=== PATIENT | female | born 1945 | race Caucasian/White ===

== ENCOUNTER → 2016-09-04 | Outpatient (REF) | payer MEDICARE ==
[2016-09-04 13:32] LABS: CALCIUM OXALATE CRYSTALS LARGE
== END ==
LOC: M SMT 12:46
PROVIDERS: ATTEND Nurse Practitioner Family
DX: R35.0 Frequency of micturition (principal)
CPT/HCPCS: 81001; 87086; G0463

== ENCOUNTER → 2016-09-10 | Outpatient (CLI) | payer MEDICARE, BC ==
--- NOTE | 2016-09-10 11:29 | REP ---
CT of the abdomen and pelvis without IV or bowel contrast: A comparison is 01/24/2007 . The patient has a history of left nephrectomy. The visualized lung caba are unremarkable. The unenhanced hepatic parenchyma is unremarkable. There is a gallbladder calculus in the gallbladder fundus as an interval change. The gallbladder is otherwise unremarkable. The pancreas and spleen are normal size and unchanged. There are surgical clips in the left renal fossa and the left kidney is absent. There is no evidence of tumor recurrence. I do not identify the left adrenal on the current study and I can identify the left adrenal on the prior study. The right adrenal is unremarkable. There are right renal parapelvic cysts as previously. There is no right hydronephrosis or hydroureter. There are no right renal or ureteral calculi. There are no bladder calculi. The abdominal aorta is unremarkable except for occasional calcified atheroma. There is no bowel distension. Mesentery is unremarkable. Pelvis: The appendix is unremarkable. There is no ascites or adenopathy. The uterus and adnexa are unremarkable. The pelvic bowel loops are unremarkable. Half there are no lytic, blastic or destructive skeletal changes except for a small focal density posteriorly in the left iliac wing at the sacroiliac articulations, possibly bone island or possibly skeletal metastasis, not present previously. Consider MRI or. Impression: Left nephrectomy and possibly a left adrenalectomy. No evidence of tumor recurrence. No retroperitoneal, pelvic or abdominal adenopathy. No ascites. There is no hydronephrosis of the right kidney or ureter. No right renal or ureteral calculi. There are right renal parapelvic cysts as previously. There is a single gallbladder calculus. There is a small sclerotic density posteriorly in the left iliac wing, not present previously, bone island versus blastic metastasis. Consider radionuclide bone scan or MRI for further evaluation. radionuclide bone scan. Signed by Julio Cesar Roth MD 09/10/2016 09:05 A
== END ==
LOC: M RAD 07:29
PROVIDERS: ATTEND Nurse Practitioner Family
DX: N13.30 Unspecified hydronephrosis (principal)

== ENCOUNTER → 2016-11-13 | Outpatient (CLI) | payer MEDICARE, BC ==
--- NOTE | 2016-11-13 14:01 | REP ---
Whole body radionuclide bone scan: Whole-body scanning is performed. Additionally lateral views of the calvarium and knees are performed and oblique views of the ribs and pelvis are performed. Comparison is a CT abdomen pelvis dated 08/14/2016. There is early small sclerotic lesion posteriorly in the left iliac wing. On the whole-body scan there is no unusual uptake in the calvarium. There is a degenerative pattern of uptake in the shoulders and sternoclavicular joints. There is no unusual uptake in the cervical spine, thoracic spine or lumbar spine. No unusual rib uptake. Uptake in the pelvis is bilaterally symmetric. There is no evidence of focal increased uptake posteriorly in the left iliac wing. Therefore, the finding on the comparison CT is likely a benign bone island. There is focal uptake at the thumb bases bilaterally. In this location, this is most compatible with osteoarthritis. There is no unusual uptake in the hips or lower extremities. I note that there is no radio tracer excretion by the left kidney. Review of the comparison CT indicates the the patient has a left nephrectomy. Impression: There is no focal unusual or abnormal uptake posteriorly in the left iliac wing. Therefore the finding on the comparison CT is likely a benign bone island. There is a degenerative pattern of uptake in the shoulders bilaterally and in the bases of the thumbs bilaterally. There is a left nephrectomy. Otherwise, negative radionuclide bone scan. The study is performed with 20.2 mCi of technetium 99m labeled MDP Signed by Julio Cesar Roth MD 11/13/2016 01:52 P
== END ==
LOC: M RAD 10:01
PROVIDERS: ATTEND Physician Assistant
DX: M89.9 Disorder of bone, unspecified (principal)
CPT/HCPCS: 78306; A9503

== ENCOUNTER → 2017-01-01 | Outpatient (REF) | payer MEDICARE, BC ==
[2017-01-02 12:32] LABS: MEAN CORPUSCULAR HEMOGLOBIN 29.1 pg (27.0-33.0); MEAN CORPUSCULAR HGB CONC 32.9 g/dl (32.0-36.5); MEAN CORPUSCULAR VOLUME 88.6 fl (80.0-96.0); RED CELL DISTRIBUTION WIDTH 14.7 % (11.5-14.5); WHITE BLOOD COUNT 5.4 K/mm3 (4.0-10.0)
[2017-01-02 12:42] LABS: ALBUMIN 3.5 GM/DL (3.2-5.2); ALBUMIN/GLOBULIN RATIO 1.17 (1.00-1.93); ALKALINE PHOSPHATASE 91 U/L (45-117); ALT/SGPT 24 U/L (12-78); ANION GAP 5 MEQ/L (8-16); AST/SGOT 18 U/L (15-37); BILIRUBIN,TOTAL 0.4 MG/DL (0.2-1.0); BLOOD UREA NITROGEN 15 MG/DL (7-18); CALCIUM LEVEL 9.2 MG/DL (8.8-10.2); CARBON DIOXIDE LEVEL 29 MEQ/L (21-32); CHLORIDE LEVEL 108 MEQ/L (98-107); CREATININE FOR GFR 0.89 MG/DL (0.55-1.02); GLOMERULAR FILTRATION RATE > 60.0 (>39); GLUCOSE, FASTING 98 MG/DL (83-110); POTASSIUM SERUM 4.5 MEQ/L (3.5-5.1); SODIUM LEVEL 142 MEQ/L (136-145); TOTAL PROTEIN 6.5 GM/DL (6.4-8.2)
== END ==
LOC: M SFHCADAM 08:03
PROVIDERS: ATTEND Physician Assistant
DX: K74.3 Primary biliary cirrhosis (principal); Z13.820 Encounter for screening for osteoporosis; E55.9 Vitamin D deficiency, unspecified; M81.0 Age-related osteoporosis without current pathological fracture

== ENCOUNTER → 2017-06-26 | Outpatient (REF) | payer MEDICARE, BC ==
[2017-06-26 14:21] LABS: ALBUMIN 3.7 GM/DL (3.2-5.2); ALBUMIN/GLOBULIN RATIO 1.28 (1.00-1.93); ALKALINE PHOSPHATASE 96 U/L (45-117); ALT/SGPT 24 U/L (12-78); ANION GAP 6 MEQ/L (8-16); AST/SGOT 15 U/L (7-37); BILIRUBIN,TOTAL 0.3 MG/DL (0.2-1.0); BLOOD UREA NITROGEN 16 MG/DL (7-18); CALCIUM LEVEL 9.5 MG/DL (8.8-10.2); CARBON DIOXIDE LEVEL 26 MEQ/L (21-32); CHLORIDE LEVEL 108 MEQ/L (98-107); CHOLESTEROL LEVEL 125 MG/DL (<200); GLOMERULAR FILTRATION RATE > 60.0 (>39); GLUCOSE, FASTING 110 MG/DL (83-110); POTASSIUM SERUM 4.4 MEQ/L (3.5-5.1); SODIUM LEVEL 140 MEQ/L (136-145); TOTAL PROTEIN 6.6 GM/DL (6.4-8.2); TRIGLYCERIDES LEVEL 105 MG/DL (<150)
== END ==
LOC: M SFHCADAM 08:11
PROVIDERS: ATTEND Physician Assistant
DX: I25.10 Atherosclerotic heart disease of native coronary artery without angina pectoris (principal)

== ENCOUNTER → 2017-12-24 | Outpatient (CLI) | payer MEDICARE, BC | LOC: M WHC 08:19 | DX: K74.3 Primary biliary cirrhosis (principal) | CPT/HCPCS: 76705 ==

== ENCOUNTER → 2017-12-31 | Outpatient (REF) | payer MEDICARE, BC ==
[2017-12-31 12:57] LABS: HEMATOCRIT 41.9 % (36.0-47.0); HEMOGLOBIN 13.4 g/dl (12.0-15.5); MEAN CORPUSCULAR HEMOGLOBIN 28.4 pg (27.0-33.0); MEAN CORPUSCULAR VOLUME 88.8 fl (80.0-96.0); PLATELET COUNT, AUTOMATED 226 10^3/uL (150-450); RED BLOOD COUNT 4.72 10^6/uL (4.00-5.40); RED CELL DISTRIBUTION WIDTH 15.2 % (11.5-14.5); WHITE BLOOD COUNT 6.9 10^3/uL (4.0-10.0)
[2017-12-31 13:20] LABS: ALBUMIN 3.6 GM/DL (3.2-5.2); ALBUMIN/GLOBULIN RATIO 1.13 (1.00-1.93); ALKALINE PHOSPHATASE 100 U/L (45-117); ALPHA FETOPROTEIN TUMOR QUANT 1.5 NG/ML (<8.1); ALT/SGPT 24 U/L (12-78); ANION GAP 7 MEQ/L (8-16); AST/SGOT 20 U/L (7-37); BILIRUBIN,TOTAL 0.3 MG/DL (0.2-1.0); BLOOD UREA NITROGEN 20 MG/DL (7-18); CALCIUM LEVEL 9.2 MG/DL (8.8-10.2); CARBON DIOXIDE LEVEL 25 MEQ/L (21-32); CHLORIDE LEVEL 112 MEQ/L (98-107); CREATININE FOR GFR 0.89 MG/DL (0.55-1.30); GLOMERULAR FILTRATION RATE > 60.0 (>39); GLUCOSE, FASTING 97 MG/DL (70-100); POTASSIUM SERUM 4.5 MEQ/L (3.5-5.1); SODIUM LEVEL 144 MEQ/L (136-145); TOTAL PROTEIN 6.8 GM/DL (6.4-8.2)
== END ==
LOC: M SFHCADAM 08:05
DX: K74.3 Primary biliary cirrhosis (principal); I25.10 Atherosclerotic heart disease of native coronary artery without angina pectoris
CPT/HCPCS: 80053

== ENCOUNTER → 2018-01-23 | Outpatient (REF) | payer MEDICARE, BC ==
[2018-01-23 20:21] LABS: VITAMIN B12 LEVEL 517 PG/ML
[2018-01-23 20:39] LABS: FREE T4 0.97 NG/DL (0.76-1.46)
[2018-01-23 21:02] LABS: FOLATE 17.1 NG/ML
== END ==
LOC: M SFHCADAM 14:34
DX: Z12.11 Encounter for screening for malignant neoplasm of colon (principal); F32.2 Major depressive disorder, single episode, severe without psychotic features; G62.9 Polyneuropathy, unspecified
CPT/HCPCS: 82746

== ENCOUNTER → 2018-10-21 | Outpatient (REF) | payer MEDICARE ==
[2018-10-21 19:51] LABS: HEMATOCRIT 44.7 % (36.0-47.0); HEMOGLOBIN 13.8 g/dl (12.0-15.5); MEAN CORPUSCULAR HEMOGLOBIN 27.8 pg (27.0-33.0); MEAN CORPUSCULAR HGB CONC 30.9 g/dl (32.0-36.5); MEAN CORPUSCULAR VOLUME 90.1 fl (80.0-96.0); PLATELET COUNT, AUTOMATED 254 10^3/uL (150-450); RED BLOOD COUNT 4.96 10^6/uL (4.00-5.40); WHITE BLOOD COUNT 7.4 10^3/uL (4.0-10.0)
[2018-10-21 19:59] LABS: ALBUMIN 3.7 GM/DL (3.2-5.2); ALT/SGPT 22 U/L (12-78); BILIRUBIN,TOTAL 0.3 MG/DL (0.2-1.0); BLOOD UREA NITROGEN 19 MG/DL (7-18); CALCIUM LEVEL 9.7 MG/DL (8.8-10.2); CARBON DIOXIDE LEVEL 29 MEQ/L (21-32); CHLORIDE LEVEL 108 MEQ/L (98-107); GLOMERULAR FILTRATION RATE > 60.0 (>39); GLUCOSE, FASTING 83 MG/DL (70-100); POTASSIUM SERUM 5.3 MEQ/L (3.5-5.1); SODIUM LEVEL 142 MEQ/L (136-145)
== END ==
LOC: M SFHCADAM 12:14
PROVIDERS: ATTEND Physician Assistant
DX: K74.3 Primary biliary cirrhosis (principal)
CPT/HCPCS: 80053; 85027; G0463

== ENCOUNTER → 2019-05-06 | Outpatient (REF) | payer MEDICARE ==
[2019-05-06 19:34] LABS: HEMATOCRIT 46.3 % (36.0-47.0); HEMOGLOBIN 14.8 g/dl (12.0-15.5); MEAN CORPUSCULAR HEMOGLOBIN 27.7 pg (27.0-33.0); MEAN CORPUSCULAR VOLUME 86.5 fl (80.0-96.0); PLATELET COUNT, AUTOMATED 255 10^3/uL (150-450); RED BLOOD COUNT 5.35 10^6/uL (4.00-5.40); WHITE BLOOD COUNT 9.4 10^3/uL (4.0-10.0)
[2019-05-06 19:54] LABS: ALBUMIN 4.1 GM/DL (3.2-5.2); ALT/SGPT 25 U/L (12-78); BILIRUBIN,TOTAL 0.4 MG/DL (0.2-1.0); BLOOD UREA NITROGEN 16 MG/DL (7-18); CALCIUM LEVEL 10.6 MG/DL (8.8-10.2); CARBON DIOXIDE LEVEL 25 MEQ/L (21-32); CHLORIDE LEVEL 106 MEQ/L (98-107); CREATININE FOR GFR 0.88 MG/DL (0.55-1.30); GLOMERULAR FILTRATION RATE > 60.0 (>39); GLUCOSE, FASTING 83 MG/DL (70-100); POTASSIUM SERUM 4.8 MEQ/L (3.5-5.1); SODIUM LEVEL 142 MEQ/L (136-145); TOTAL PROTEIN 7.4 GM/DL (6.4-8.2)
== END ==
LOC: M SFHCADAM 16:29
PROVIDERS: ATTEND Physician Assistant
DX: K74.3 Primary biliary cirrhosis (principal); I25.10 Atherosclerotic heart disease of native coronary artery without angina pectoris
CPT/HCPCS: 80053; 82105; 85027; G0463